=== PATIENT | male | born 1955 | race African-American/Black ===

== ENCOUNTER 2024-01-28 10:39 | Emergency (ER) | payer SELFPAY ==
[2024-01-28 10:42] VITALS: BP 114/72
[2024-01-28 11:11] VITALS: BMI 26.5
--- NOTE | 2024-01-28 11:53 | EDRN ---
still waiting for provider to sign up for the pt and see the pt
--- NOTE | 2024-01-28 12:31 | EDRN ---
provider Ed Anmol BEAL currently at the pts bedside
[2024-01-28] MEDS: TORADOL 30 MG IM (12:51)
[2024-01-28] MEDS: DECADRON 10 MG PO (12:51)
[2024-01-28] MEDS: VALIUM 5 MG PO (12:51)
[2024-01-28 13:02] VITALS: BP 137/71
--- NOTE | 2024-01-28 13:05 | ED.GENMED ---
History of Present Illness
General
Chief Complaint: Fall
Source: patient
Exam Limitations: none
Time Seen by Provider: 01/28/24 11:54
Nursing documentation reviewed up to this point in time: agreed with
History of Present Illness
History of Present Illness:
68-year-old male presenting to the emergency department today with concerns of low back discomfort over the past week. Initially tripped down the stairs hit his back felt okay over the next few days symptoms seem to be worsened denies any change in
bowel or bladder function no numbness or weakness.
Review of Systems
Review of Systems
Allergies reviewed?: Yes
All Other Systems: ROS reviewed and negative except as documented in HPI and ROS
Phy Exam
Physical Exam
Physical Exam:
GENERAL: Alert , in no apparent distress
EYE: pupils equal and reactive
NECK: Supple, no significant adenopathy.
ENT: o/p clr, mmm.
CARDIAC: Regular rate and rhythm .
LUNGS: Clear breath sounds bilaterally, no acute respiratory distress, no wheezes/rales/rhonchi
ABDOMEN: Soft, without focal tenderness, no r/g, no cvat
NEUROLOGICAL: Alert and oriented, no focal neuro deficits
SKIN: Warm and dry, skin intact.
MUSCULOSKELETAL: No edema, well perfused.
PSYCH: Normal and appropriate interaction.
Course
Orders/Labs/Results
Orders:
Orders
01/28/24 11:57
Lumbar Spine, 2 or 3 View [CR Lumbar Spine 2 Or 3 Views] Urgent
Comment:
Reason For Exam: lbp fall 1 week ago
01/28/24 12:45
Dexamethasone [Decadron] 10 mg PO NOW STA
Diazepam [Valium] 5 mg PO NOW STA
Ketorolac [Toradol] 30 mg IM NOW STA
Vital Signs
Initial and Last Documented VS:
Initial Vital Signs
Temp Pulse BP Pulse Ox
98.4 F 78 114/72 100
08/09/24 10:42 01/28/24 10:42 01/28/24 10:42 01/28/24 10:42
Last Documented Vital Signs
Temp Pulse Resp BP Pulse Ox
97.8 F 86 20 137/71 99
01/28/24 13:02 01/28/24 13:02 01/28/24 13:02 01/28/24 13:02 01/28/24 13:02
MDM/Problems Addressed
MDM/Problems Addressed:
68-year-old male presenting to the emergency department today with concerns of low back pain after tripping on stairs 1 week ago. Here patient neurovascularly intact no neurologic symptoms or red flag symptoms of low back pain vital signs are
normal. X-ray without signs of emergent injury patient does have questionable compression fracture but no pain at that site considering this very unlikely to represent acute compression fracture. He was given information for follow-up with a back
doctor but otherwise return precautions given.
*Critical Care Note
Total Time (30-74mins, 75-104mins- exclusive of procedures): Not Applicable
ED Attending Note
-
Portions of this chart may have been created with voice recognition software.� Occasional wrong word or��sound alike� substitutions may have occurred due to the inherent limitations of voice recognition software.
Discharge Plan
Departure
Patient Disposition: Home (Routine Discharge)
Date of Disposition: 01/28/24
Time of Disposition: 13:06
Patient with high blood pressure during this ER visit?: No
Condition: Good
Covid-19: Not Applicable
Discharge Problem:
Coccygeal pain
Instructions: Contusion (DC)
Prescriptions:
New
naproxen 500 mg tablet
500 mg PO BID Qty: 14 0RF
Referrals:
Edenilson Hernandez MD [Active] - Follow up in 5-7 days
UNKNOWN - PT DOES,NOT KNOW [Family Provider] -
Stand Alone Forms: Return to Work
Activity Restrictions/Additional Instructions:
You came to the emergency department today with concerns of back discomfort. Here your x-ray did not show any acute injuries please follow closely with the back doctor and take the prescribed indications. Return to the emergency department for any
worsening, new or concerning symptoms.
Interventions
Interventions:
*Risk Screen - Suicide Last Done: 01/28/24 11:11
*General Assessment Last Done: 01/28/24 11:11
*Neglect/Abuse Screening Last Done: 01/28/24 11:11
ED- Fall Risk Assessment Last Done: 01/28/24 11:11
*ED COVID-19 Vaccine History Last Done: 01/28/24 11:11
ED-Musculoskeletal Assessment Last Done: 01/28/24 11:11
ED- Neurological Assessment Last Done: 01/28/24 11:11
ED-Skin Assessment Last Done: 01/28/24 11:11
Discharge Date and Time
Print Language: EGYPTIAN
== END 2024-01-28 13:21 | disposition home or self-care (01) ==
LOC: EMR 10:39
PROVIDERS: EMERGENCY PHYSICIAN Emergency Medicine
DX: M53.3 Sacrococcygeal disorders, not elsewhere classified (principal); M54.50 Low back pain, unspecified; W10.9XXA Fall (on) (from) unspecified stairs and steps, initial encounter; Y93.89 Activity, other specified; Y92.89 Other specified places as the place of occurrence of the external cause; Y99.0 Civilian activity done for income or pay
CPT/HCPCS: 99284; 96372; 72100